=== PATIENT | male | born 1960 | race Asian ===

== ENCOUNTER 2019-01-23 07:56 | Emergency (ER) | payer MEDICAID ==
[~2019-01-23] VITALS: Ht 170.2 cm; Wt 99.8 kg
[~2019-01-23 07:56] MED LIST: ALBUTEROL SULF8.5 GM INH; AMLODIPINE BESYL5 MG ORAL; FLUOXETINE HCL40 MG ORAL; GABAPENTIN300 MG ORAL; GEMFIBROZIL600 MG ORAL; IBUPROFEN600 MG ORAL; LEVAQUIN750 MG ORAL; LITHIUM CARBON300 MG ORAL; MIRTAZAPINE30 MG ORAL; MULTIPLE VITAM1 EAC6 PO; PROMETHAZINE-D118 ML ORAL; PROTONIX40 MG ORAL; ZYPREXA5 MG ORAL
[2019-01-23] MEDS ORDERED: LOSARTAN POTASS50 MG ORAL (08:15)
--- NOTE | 2019-01-23 08:17 | NUR ---
ED Nurse Note: pt walked in due to allergic reaction started this morning.pt is scratching all over his body, rashes notes. pt stated that he has no allergy on medication but he started to take gemfibrozil for high cholesterol. pt vs is within normal limit. ermd on bedside. will continue to monitor.
[2019-01-23 08:20] VITALS: BP 140/92
[2019-01-23] MEDS ORDERED: DiphenhydrAMINE 50mg/ml Inj IVP ONE (08:30)
[2019-01-23] MEDS ORDERED: Solu-MEDROL 125mg Inj IVP ONE (08:30)
--- NOTE | 2019-01-23 08:30 | NUR ---
ED Nurse Note: with new order from ermabby. iv started n the left ac, pt medicated as ordered. pt able to tolerate. will continue to monitor.
--- NOTE | 2019-01-23 08:40 | NUR ---
ED Nurse Note: xray on bedside
[2019-01-23 08:48] LABS: EOSINOPHILS % (AUTO) 2.9 % (0.0-3.0); HEMATOCRIT 49.1 % (42.0-52.0); HEMOGLOBIN 16.8 G/DL (14.2-18.0); MEAN CORPUSCULAR VOLUME 90 FL (80-99); MONOCYTES % (AUTO) 4.5 % (1.0-10.0); NEUTROPHILS % (AUTO) 65.6 % (45.0-75.0); PLATELET COUNT 310 K/UL (150-450); RED BLOOD COUNT 5.47 M/UL (4.70-6.10); RED CELL DISTRIBUTION WIDTH 12.2 % (11.6-14.8)
[2019-01-23 09:09] LABS: ANION GAP 9 mmol/L (5-15); BLOOD UREA NITROGEN 12 mg/dL (7-18); CALCIUM 9.4 MG/DL (8.5-10.1); CARBON DIOXIDE 26 MMOL/L (21-32); CHLORIDE 107 MMOL/L (98-107); CREATININE 0.8 MG/DL (0.55-1.30); POTASSIUM 4.1 MMOL/L (3.5-5.1); SODIUM 142 MMOL/L (136-145)
--- NOTE | 2019-01-23 09:19 | Emergency Room Report ---
History of Present Illness General Chief Complaint: Allergic Reaction Source: Patient, Medical Record Present Illness HPI Patient presents with initial complaint of chest pain Reports off-and-on discomfort over the past several days however Complains also of itching and reaction to the lower abdominal and upper extremities He is not clear exactly what initiated the reaction Denies any vomiting or diarrhea It is fairly pleuritic in nature denies any shortness of breath denies any sore throat denies any difficulty breathing Currently denies any chest pain he had reported discomfort to the upper left chest area There was no change with exertion or position Allergies: Coded Allergies: No Known Allergies (Unverified , 10/31/18) Patient History Past Medical History: see triage record Pertinent Family History: none Reviewed Nursing Documentation: PMH: Agreed; PSxH: Agreed Nursing Documentation-PMH Past Medical History: No History, Except For Hx Hypertension: Yes - High cholesterol Hx Asthma: Yes Hx Gastrointestinal Problems: Yes - Gastritis Review of Systems All Other Systems: negative except mentioned in HPI Physical Exam Vital Signs Date Time Temp Pulse Resp B/P (MAP) Pulse Ox O2 Delivery O2 Flow Rate FiO2 01/23/19 08:05 98.1 77 16 150/93 (112) 96 Room Air Sp02 EP Interpretation: reviewed, normal General Appearance: well appearing, no apparent distress Head: normocephalic, atraumatic Eyes: bilateral eye PERRL, bilateral eye EOMI ENT: hearing grossly normal, normal pharynx, TMs + canals normal, uvula midline Neck: full range of motion, supple, no meningismus, no bony tend Respiratory: lungs clear, normal breath sounds, no rhonchi, no respiratory distress, no retraction, no accessory muscle use Cardiovascular #1: normal peripheral pulses, regular rate, rhythm, no edema, no gallop, no JVD, no murmur Gastrointestinal: normal bowel sounds, non tender, soft, no mass, no organomegaly, non-distended, no guarding, no hernia, no pulsatile mass, no rebound Genitourinary: no CVA tenderness Musculoskeletal: normal inspection Neurologic: oriented x3, responsive, supervisor finish end III-XII nml as tested, motor strength/ tone normal, sensory intact Psychiatric: mood/affect normal Skin: other - Urticarial rash lower abdomen upper arms Lymphatic: normal inspection, no adenopathy Medical Decision Making Diagnostic Impression: Primary Impression: Allergic reaction ER Course Patient is a fairly complex patient with multiple differential to consideration including but not limited to cardiac cardiopulmonary and vascular emergencies Patient also appears to have had an allergic reaction Patient treated aggressively in the emergency room remains chest pain-free On repeat evaluation feels significantly improved and will have initial conservative outpatient trial Labs Test 01/23/19 08:20 White Blood Count 8.0 K/UL (4.8-10.8) Red Blood Count 5.47 M/UL (4.70-6.10) Hemoglobin 16.8 G/DL (14.2-18.0) Hematocrit 49.1 % (42.0-52.0) Mean Corpuscular Volume 90 FL (80-99) Mean Corpuscular Hemoglobin 30.7 PG (27.0-31.0) Mean Corpuscular Hemoglobin Concent 34.1 G/DL (32.0-36.0) Red Cell Distribution Width 12.2 % (11.6-14.8) Platelet Count 310 K/UL (150-450) Mean Platelet Volume 4.9 FL (6.5-10.1) Neutrophils (%) (Auto) 65.6 % (45.0-75.0) Lymphocytes (%) (Auto) 26.0 % (20.0-45.0) Monocytes (%) (Auto) 4.5 % (1.0-10.0) Eosinophils (%) (Auto) 2.9 % (0.0-3.0) Basophils (%) (Auto) 1.0 % (0.0-2.0) Sodium Level 142 MMOL/L (136-145) Potassium Level 4.1 MMOL/L (3.5-5.1) Chloride Level 107 MMOL/L (98-107) Carbon Dioxide Level 26 MMOL/L (21-32) Anion Gap 9 mmol/L (5-15) Blood Urea Nitrogen 12 mg/dL (7-18) Creatinine 0.8 MG/DL (0.55-1.30) Estimat Glomerular Filtration Rate > 60 mL/min (>60) Glucose Level 133 MG/DL (74-106) Calcium Level 9.4 MG/DL (8.5-10.1) Total Bilirubin 1.0 MG/DL (0.2-1.0) Aspartate Amino Transf (AST/SGOT) 39 U/L (15-37) Alanine Aminotransferase (ALT/SGPT) 38 U/L (12-78) Alkaline Phosphatase 128 U/L (46-116) Total Creatine Kinase 159 U/L (26-308) Creatine Kinase MB 1.0 NG/ML (0.0-3.6) Creatine Kinase MB Relative Index 0.6 Troponin I 0.000 ng/mL (0.000-0.056) Total Protein 7.7 G/DL (6.4-8.2) Albumin 4.0 G/DL (3.4-5.0) Globulin 3.7 g/dL Albumin/Globulin Ratio 1.1 (1.0-2.7) EKG Diagnostic Results Rate: normal Rhythm: NSR ST Segments: no acute changes Rhythm Strip Diag. Results EP Interpretation: yes Rate: 88 Rhythm: NSR, no PVC's, no ectopy Chest X-Ray Diagnostic Results Chest X-Ray Diagnostic Results : Chest X-Ray Ordered: Yes Indication: Chest Pain EP Interpretation: Yes Interpretation: no consolidation, no effusion, no pneumothorax, other - Mild congestion similar to previous Impression: No acute disease - Mild congestion similar to previous Electronically Signed by: Zainab Rangel DO Last Vital Signs Date Time Temp Pulse Resp B/P (MAP) Pulse Ox O2 Delivery O2 Flow Rate FiO2 01/23/19 08:20 62 15 Room Air 01/23/19 08:20 98.1 140/92 96 Status: improved Disposition: HOME, SELF-CARE Condition: Improved Scripts Methylprednisolone (Methylprednisolone*) 4MG Dspk 4 MG ORAL DIRECTED for 6 Days, #21 EA 0 Refills Day 1: Two tablets before breakfast, one after lunch, one after dinner, and two at bedtime. If started late in the day, take all six tablets at once or divide into two or three doses, unless otherwise directed by prescriber. Day 2: One tablet before breakfast, one after lunch, one after dinner, and two at bedtime Day 3: One tablet before breakfast, one after lunch, one after dinner, and one at bedtime Day 4: One tablet before breakfast, one after lunch, and one at bedtime Day 5: One tablet before breakfast and one at bedtime Day 6: One tablet before breakfast Prov: Zainab Rangel DO 01/23/19 Diphenhydramine Hcl* (BENADRYL*) 25 Mg Capsule 25 MG ORAL Q6H PRN for Itching, #21 CAP Prov: Zainab Rangel DO 01/23/19 Referrals: [facility]ERR[facility] (PCP) Additional Instructions: Patient is provided with the discharge instructions notified to follow up with primary doctor in the next 2-3 days otherwise return to the er with any worsening symptoms. Please note that this report is being documented using DRAGON technology. This can lead to erroneous entry secondary to incorrect interpretation by the dictating instrument. Zainab Rangel DO Jan 23, 2019 09:19
[2019-01-23 09:24] LABS: ALANINE AMINOTRANSFERASE 38 U/L (12-78); ALBUMIN/GLOBULIN RATIO 1.1 (1.0-2.7); ALKALINE PHOSPHATASE 128 U/L (46-116); ASPARTATE AMINO TRANSFERASE 39 U/L (15-37); CREATINE KINASE 159 U/L (26-308)
--- NOTE | 2019-01-23 09:25 | NUR ---
ED Nurse Note: pt reassessed and stated he feels better now and the rashes subsides. ermd made aware.
[2019-01-23 09:29] VITALS: BP 140/92
[2019-01-23] MEDS ORDERED: BENADRYL25 MG ORAL (10:21)
[2019-01-23] MEDS ORDERED: MEDROL DOSEPAK4 MG ORAL (10:21)
[2019-01-23 10:27] VITALS: BP 140/92
--- NOTE | 2019-01-23 10:27 | NUR ---
ER DISCHARGE NOTE: Patient is cleared to be discharged per ERMD, pt is aox4, on room air, with stable vital signs. pt was given dc and prescription instructions, pt was able to verbalize understanding, pt id band and iv site removed without complications. pt is able to ambulate with steady gait. pt took all belongings.
--- NOTE | 2019-01-23 10:35 | Diagnostic Imaging Report ---
Indication: Chest pain Comparison: 10/31/2018 A single view chest radiograph was obtained. Findings: The heart is enlarged. Pulmonary vascularity is mildly prominent. Bones are unremarkable. IMPRESSION: Mild pulmonary vascular congestion suspected
== END 2019-01-23 10:29 | disposition home or self-care (01) ==
LOC: EMR 08:31
DX: T78.40XA Allergy, unspecified, initial encounter (principal); X58.XXXA Exposure to other specified factors, initial encounter; E78.00 Pure hypercholesterolemia, unspecified
CPT/HCPCS: 36415; 71045; 80053; 82550; 82553; 84484; 85025; 93005; 96374; 96375; 99284; J1200; J2930; J7040

== ENCOUNTER 2019-04-18 13:31 | Emergency (ER) | payer MEDICAID ==
[~2019-04-18] VITALS: Ht 167.6 cm; Wt 104.3 kg
[~2019-04-18 13:31] MED LIST changes: +BENADRYL25 MG ORAL; +LOSARTAN POTASS50 MG ORAL; +MEDROL DOSEPAK4 MG ORAL
[2019-04-18] MEDS ORDERED: LATUDA40 MG PO (13:38)
[2019-04-18] MEDS ORDERED: BREO ELLIPTA 11 EACH IH (13:38)
[2019-04-18 13:45] VITALS: BP 152/87
--- NOTE | 2019-04-18 13:45 | NUR ---
ED Nurse Note: pt presents to ED c/o a cough x 1 month and fever and chills since last PM. pt states that he [facility] for pneumonia which he often gets around flu season. pt reports feeling bilat pain in his chest from coughing. pt states that his cough isn't usually productive. pt uses a cane for walking and has a h/o COPD, HTN and hyperlipidemia.
--- NOTE | 2019-04-18 13:59 | Emergency Room Report ---
History of Present Illness General Chief Complaint: Upper Respiratory Illness Source: Patient Present Illness [facility] The patient presents with 10 days of worsening cough. He has a history of asthma and pneumonia in the past. He has been using his inhaler. He complains about chest pain is bilateral and pleuritic. He poorly characterizes this but it is mostly when coughing. He denies any vomiting or diarrhea. He has been hospitalized in the past for pneumonia. He believes he has pneumonia at this time. Patient denies smoking. No fevers, chills, sore throat, palpitations, nausea, dysuria, abdominal pain, joint pain, depression, anxiety, visual changes, headache. Allergies: Coded Allergies: No Known Allergies (Unverified , 10/31/18) Patient History Past Medical History: see triage record Social History: Denies: smoking Social History Narrative From home Reviewed Nursing Documentation: PMH: Agreed; PSxH: Agreed Nursing Documentation-PM Past Medical History: No History, Except For Hx Hypertension: Yes - High cholesterol Hx Asthma: Yes Hx Gastrointestinal Problems: Yes - Gastritis Review of Systems All Other Systems: negative except mentioned in HPI Physical Exam Vital Signs Date Time Temp Pulse Resp B/P (MAP) Pulse Ox O2 Delivery O2 Flow Rate FiO2 04/18/19 13:33 97.9 99 18 152/87 (108) 94 Room Air Sp02 EP Interpretation: reviewed, normal General Appearance: alert, GCS 15, non-toxic, other - Paroxysms of cough Head: normocephalic, atraumatic Eyes: bilateral eye normal inspection, bilateral eye PERRL ENT: normal pharynx, moist mucus membranes Neck: supple Respiratory: wheezing, expiration Cardiovascular #1: regular rate, rhythm, no edema Cardiovascular #2: 2+ radial (R) Gastrointestinal: normal inspection, normal bowel sounds, non tender, no mass, non-distended, overweight Genitourinary: no CVA tenderness Musculoskeletal: back normal, gait/station normal, normal range of motion, no calf tenderness, Castillo's Sign negative Neurologic: alert, oriented x3, grossly normal Psychiatric: mood/affect normal Skin: warm/dry, other - [place] anterior chest Medical Decision Making Diagnostic Impression: Primary Impression: Left upper lobe pneumonia Qualified Codes: J18.1 - Lobar pneumonia, unspecified organism Additional Impression: Bronchospasm ER Course Patient presents with 10 days of worsening cough with paroxysms of coughing at this time. Differential includes pneumonia, exacerbation of COPD, status asthmaticus, bronchitis, pneumonitis, acute myocardial infarction amongst others. He will be evaluated with EKG, chest x-ray and labs. The patient will be treated with IV hydration, Solu-Medrol and breathing treatments. The patient is placed on a rn cardiac. EKG with sinus rhythm and left axis deviation. Chest x-ray with left-sided infiltrate which is worsened from January. White count slightly elevated. CMP normal. Troponin negative. Antibiotics ordered. 14:25. Improved. Discussed with Dr. Gomez at [facility]. Accepted in transfer. 17:25. Robitussin with codeine administered. Wheezing again and albuterol repeated. Improved with treatment but needing antibiotics and continued treatment of bronchospasm. Laboratory Tests Test 04/18/19 13:45 04/18/19 15:12 White Blood Count 11.9 K/UL (4.8-10.8) H Red Blood Count 5.25 M/UL (4.70-6.10) Hemoglobin 16.2 G/DL (14.2-18.0) Hematocrit 47.6 % (42.0-52.0) Mean Corpuscular Volume 91 FL (80-99) Mean Corpuscular Hemoglobin 30.8 PG (27.0-31.0) Mean Corpuscular Hemoglobin Concent 34.0 G/DL (32.0-36.0) Red Cell Distribution Width 12.9 % (11.6-14.8) Platelet Count 295 K/UL (150-450) Mean Platelet Volume 4.8 FL (6.5-10.1) L Neutrophils (%) (Auto) 70.9 % (45.0-75.0) Lymphocytes (%) (Auto) 21.8 % (20.0-45.0) Monocytes (%) (Auto) 4.5 % (1.0-10.0) Eosinophils (%) (Auto) 2.2 % (0.0-3.0) Basophils (%) (Auto) 0.7 % (0.0-2.0) Prothrombin Time 9.4 SEC (9.30-11.50) Prothrombin Time INR 0.9 (0.9-1.1) PTT 29 SEC (23-33) Sodium Level 144 MMOL/L (136-145) Potassium Level 4.0 MMOL/L (3.5-5.1) Chloride Level 106 MMOL/L (98-107) Carbon Dioxide Level 27 MMOL/L (21-32) Anion Gap 11 mmol/L (5-15) Blood Urea Nitrogen 19 mg/dL (7-18) H Creatinine 1.1 MG/DL (0.55-1.30) Estimate Glomerular Filtration Rate > 60 mL/min (>60) Glucose Level 131 MG/DL (74-106) H Lactic Acid Level 2.00 mmol/L (0.4-2.0) Calcium Level 9.0 MG/DL (8.5-10.1) Magnesium Level 2.2 MG/DL (1.8-2.4) Total Bilirubin 0.5 MG/DL (0.2-1.0) Aspartate Amino Transferase (AST) 34 U/L (15-37) Alanine Aminotransferase (ALT) 102 U/L (12-78) H Alkaline Phosphatase 159 U/L (46-116) H Total Creatine Kinase 84 U/L (26-308) Troponin I 0.000 ng/mL (0.000-0.056) Pro-B-Type Natriuretic Peptide 11 pg/mL (0-125) Total Protein 7.6 G/DL (6.4-8.2) Albumin 3.7 G/DL (3.4-5.0) Globulin 3.9 g/dL Albumin/Globulin Ratio 0.9 (1.0-2.7) L Lipase 111 U/L (73-393) Urine Color Pale yellow Urine Appearance Clear Urine pH 7 (4.5-8.0) Urine Specific [place] 1.010 (1.005-1.035) Urine Protein Negative (NEGATIVE) Urine Glucose (UA) Negative (NEGATIVE) Urine Ketones Negative (NEGATIVE) Urine Blood 1+ (NEGATIVE) H Urine Nitrite Negative (NEGATIVE) Urine Bilirubin Negative (NEGATIVE) Urine Urobilinogen Normal MG/DL (0.0-1.0) Urine Leukocyte Esterase 1+ (NEGATIVE) H Urine RBC 0-2 /HPF (0 - 0) H Urine WBC 0-2 /HPF (0 - 0) Urine Squamous Epithelial Cells None /LPF (NONE/OCC) Urine Bacteria Occasional /HPF (NONE) EKG Diagnostic Results Rate: normal Rhythm: NSR ST Segments: no acute changes - Of the axis deviation Rhythm Strip Diag. Results EP Interpretation: yes Rhythm: NSR, no PVC's, no ectopy Chest X-Ray Diagnostic Results Chest X-Ray Diagnostic Results : Chest X-Ray Ordered: Yes # of Views/Limited/Complete: 1 View Indication: Shortness of Breath EP Interpretation: Yes Interpretation: no effusion, no pneumothorax, other - Left upper lobe infiltrate Impression: Other Electronically Signed by: Electronically signed by Bong Rivera MD Last Vital Signs Date Time Temp Pulse Resp B/P (MAP) Pulse Ox O2 Delivery O2 Flow Rate FiO2 04/18/19 18:50 93 21 98 Room Air 21 04/18/19 17:58 112/66 04/18/19 16:20 97.9 Status: improved Disposition: XFER [facility] HOSP Condition: Serious Bong Rivera MD Apr 18, 2019 13:59
[2019-04-18] MEDS ORDERED: Solu-MEDROL 125mg Inj IVP ONE (14:00)
[2019-04-18] MEDS ORDERED: Ipratropium 0.02% Inh Soln 2.5ml UD HHN ONE (14:00)
[2019-04-18] MEDS: Albuterol ud Inhalation HHN SCH ×3 (14:12→14:49)
[2019-04-18 14:17] LABS: BASOPHILS % (AUTO) 0.7 % (0.0-2.0); EOSINOPHILS % (AUTO) 2.2 % (0.0-3.0); HEMATOCRIT 47.6 % (42.0-52.0); HEMOGLOBIN 16.2 G/DL (14.2-18.0); LYMPHOCYTES % (AUTO) 21.8 % (20.0-45.0); MEAN CORPUSCULAR VOLUME 91 FL (80-99); MONOCYTES % (AUTO) 4.5 % (1.0-10.0); NEUTROPHILS % (AUTO) 70.9 % (45.0-75.0); PLATELET COUNT 295 K/UL (150-450); RED BLOOD COUNT 5.25 M/UL (4.70-6.10); RED CELL DISTRIBUTION WIDTH 12.9 % (11.6-14.8); WHITE BLOOD COUNT 11.9 K/UL (4.8-10.8)
[2019-04-18 14:27] LABS: INR 0.9 (0.9-1.1)
[2019-04-18 14:30] LABS: ANION GAP 11 mmol/L (5-15); BLOOD UREA NITROGEN 19 mg/dL (7-18); CARBON DIOXIDE 27 MMOL/L (21-32); CHLORIDE 106 MMOL/L (98-107); CREATININE 1.1 MG/DL (0.55-1.30); SODIUM 144 MMOL/L (136-145)
[2019-04-18] MEDS ORDERED: Piperacillin/Tazobactam 3.375 GM in NS 110 ML IVPB ONE (14:30)
[2019-04-18] MEDS ORDERED: Azithromycin 500 MG in D5W 275 ML IVPB ONE (14:30)
[2019-04-18 14:40] LABS: ALANINE AMINOTRANSFERASE 102 U/L (12-78); ALBUMIN 3.7 G/DL (3.4-5.0); ALBUMIN/GLOBULIN RATIO 0.9 (1.0-2.7); ALKALINE PHOSPHATASE 159 U/L (46-116); ASPARTATE AMINO TRANSFERASE 34 U/L (15-37); BILIRUBIN,TOTAL 0.5 MG/DL (0.2-1.0); CREATINE KINASE 84 U/L (26-308)
[2019-04-18] MEDS: Sodium Chloride 550 ML IV SCH ×3 (14:58→16:48)
--- NOTE | 2019-04-18 15:12 | NUR ---
ED Nurse Note: Pt urinated x 1, used urinal in room, light vianney urine noted. Collected and sent to lab.
[2019-04-18 15:16] VITALS: BP 119/74
--- NOTE | 2019-04-18 15:18 | NUR ---
ED Nurse Note: Pt is coughing, productive, scanty phlegm noted. ERMD aware and will order cough syrup. Awaiting for orders. Also confirmed with ERMD Dr. Rivera that pt is ok to eat/drink.
[2019-04-18 15:23] LABS: APPEARANCE,URINE CLEAR; BILIRUBIN, URINE NEGATIVE (NEGATIVE); COLOR,URINE PALE YELLOW; GLUCOSE, URINE (UA) NEGATIVE (NEGATIVE); KETONES,URINE NEGATIVE (NEGATIVE); LEUKOCYTE ESTERASE ,URINE 1+ (NEGATIVE); NITRITE,URINE NEGATIVE (NEGATIVE); PH,URINE 7 (4.5-8.0); PROTEIN,URINE NEGATIVE (NEGATIVE); UROBILINOGEN,URINE NORMAL MG/DL (0.0-1.0)
[2019-04-18 16:20] VITALS: BP 110/59
--- NOTE | 2019-04-18 16:20 | NUR ---
ED Nurse Note: pt is in stable condition, a room has been assigned. per charge nurse, report will be given to admitting RN once ER and admitting physicians speak.
--- NOTE | 2019-04-18 16:37 | NUR ---
ED Nurse Note: small amount of green sputum noted in a cup at pt's bedside. He has been coughing and spitting into the cup
[2019-04-18] MEDS ORDERED: guaiFENesin w/Codeine 5ml Liq ud ORAL PRN (17:15)
--- NOTE | 2019-04-18 17:21 | NUR ---
ED Nurse Note: pt is requesting cough syrup. I let the [facility] know and he said he would order it Addendum: 04/18/19 at 1722 by IZABEL ED Nurse Note: awaiting on order from [facility] for cough syrup
--- NOTE | 2019-04-18 17:27 | NUR ---
spoke with , patient to go to [facility].
[2019-04-18 17:58] VITALS: BP 112/66
--- NOTE | 2019-04-18 18:01 | NUR ---
Farhad ledesma in ED - 04/18/19 at 1801 by HITESH Mauro called back, speaking with .
--- NOTE | 2019-04-18 18:16 | NUR ---
ED Nurse Note: called [facility] to give report but admitting nurse was busy. another nurse stated they would call back in 5 minutes.
[2019-04-18] MEDS ORDERED: Albuterol ud Inhalation HHN ONE (18:30)
--- NOTE | 2019-04-18 18:30 | NUR ---
ED Nurse Note: called and endorsed pt care to GREG Saleh at [facility]. pt will be transported via [facility] ETA [phone].
--- NOTE | 2019-04-19 16:23 | Diagnostic Imaging Report ---
Indication: Shortness of breath Technique: One view of the chest Comparison: 01/23/2019 Findings: The heart is enlarged. There is bilateral interstitial congestion, which appears somewhat increased from the previous exam. There is suggestion of some airspace opacity in the left midlung. The pleural spaces are clear. Impression: Cardiomegaly. Bilateral interstitial congestion and left-sided airspace infiltrates versus edema
--- NOTE | 2019-04-22 21:16 | Cardiology Report ---
APPROVED REPORT EKG Measurement Heart [id number] Normal sinus rhythm Left axis deviation Abnormal ECG
== END 2019-04-18 18:27 | disposition short-term general hospital (02) ==
LOC: EMR 14:13
DX: J18.1 Lobar pneumonia, unspecified organism (principal); J45.909 Unspecified asthma, uncomplicated; E78.00 Pure hypercholesterolemia, unspecified; Z79.51 Long term (current) use of inhaled steroids
CPT/HCPCS: 36415; 71045; 80053; 81003; 82550; 83605; 83690; 83735; 83880; 84484; 85025; 85610; 85730; 87040; 93005; 94640; 94664; 96361; 96365; 96375; J0456; J2543; J2930; J7040; Z7502; 99284